=== PATIENT | male | born 1945 | race Caucasian/White ===

== ENCOUNTER → 2017-08-23 10:06 | Outpatient (POV) | payer MEDICARE, SELFPAY | PROVIDERS: Visit Provider Dermatology | DX: Z00.00 Encounter for general adult medical examination without abnormal findings (principal) ==

== ENCOUNTER → 2018-03-05 09:38 | Outpatient (POV) | payer MEDICARE, SELFPAY | PROVIDERS: PCP Family Medicine; Visit Provider Dermatology | DX: Z00.00 Encounter for general adult medical examination without abnormal findings (principal) ==

== ENCOUNTER → 2018-08-14 12:52 | Outpatient (CLI) | payer MEDICARE, SELFPAY | PROVIDERS: PCP Family Medicine; Visit Provider Specialist | DX: G20 Parkinson's disease (principal); G47.19 Other hypersomnia; G47.30 Sleep apnea, unspecified; I10 Essential (primary) hypertension; I25.10 Atherosclerotic heart disease of native coronary artery without angina pectoris; R42 Dizziness and giddiness; R53.83 Other fatigue | CPT/HCPCS: G0399 ==

== ENCOUNTER → 2018-10-07 19:52 | Outpatient (CLI) | payer MEDICARE, SELFPAY | PROVIDERS: PCP Family Medicine; Visit Provider Specialist | DX: G47.33 Obstructive sleep apnea (adult) (pediatric) (principal); R40.0 Somnolence; I10 Essential (primary) hypertension | CPT/HCPCS: 95810 ==

== ENCOUNTER → 2018-10-29 09:46 | Outpatient (POV) | payer MEDICARE, SELFPAY | PROVIDERS: Visit Provider Dermatology | DX: Z00.00 Encounter for general adult medical examination without abnormal findings (principal) ==

== ENCOUNTER → 2019-12-29 16:29 | Outpatient (CLI) | payer MEDICARE, SELFPAY ==
[2019-12-29 18:07] LABS: Alanine Aminotransferase 24 U/L (12-78); Albumin Level 4.3 g/dl (3.5-5.0); Albumin/Globulin Ratio 1.5 (1.1-1.8); Alkaline Phosphatase 140 U/L (38-126); Anion Gap 16.7 mEq/L (5-15); Aspartate Amino Transferase 24 U/L (17-59); Bilirubin,Total 0.4 mg/dl (0.2-1.3); Blood Urea Nitrogen 33 mg/dl (9-20); Calcium 10.8 mg/dl (8.4-10.2); Carbon Dioxide 30 mmol/L (22.0-30.0); Chloride 97 mmol/L (98-107); Chol/HDL Ratio 4.8 (1-3.5); Cholesterol 241 mg/dl (140-200); Estimated Glomerular Filt Rate 65 ml/min (>60); GFR (African American) 79 ML/MIN (>60); Globulin 2.9 g/dL (1.3-3.2); Glucose 211 mg/dl (74-100); HDL Cholesterol 50 mg/dl (40-60); Potassium 4.7 mmoL/L (3.5-5.1); Sodium 139 mmol/L (136-145); Total Protein,Serum 7.2 g/dl (6.3-8.2)
[2019-12-29 18:08] LABS: Triglycerides 488 mg/dl (30-150)
[2019-12-29 22:14] LABS: Hemoglobin A1C 11.9 % (4.0-6.0)
== END ==
PROVIDERS: Visit Provider Family Medicine
DX: E11.9 Type 2 diabetes mellitus without complications (principal); I10 Essential (primary) hypertension; E78.5 Hyperlipidemia, unspecified; Z79.84 Long term (current) use of oral hypoglycemic drugs
CPT/HCPCS: 80053; 80061; 83036

== ENCOUNTER → 2020-01-13 14:39 | Outpatient (POV) | payer MEDICARE, SELFPAY | PROVIDERS: Visit Provider Dermatology | DX: Z00.00 Encounter for general adult medical examination without abnormal findings (principal) ==

== ENCOUNTER 2020-01-17 09:48 | Emergency (ER) | payer MEDICARE, SELFPAY ==
[2020-01-17 09:49] VITALS: BP 153/64; PULSE 85; RESP 20; TEMP 36.4; O2SAT 97; BMI 39.9
--- NOTE | 2020-01-17 09:52 | HMH.EDGENADL ---
ED Disposition Clinical Impression: Left hip pain Left knee pain Qualifiers: Chronicity: acute Qualified Code(s): M25.562 - Pain in left knee Disposition: Home, Self-Care Condition on Discharge: Good Additional Instructions: Follow-up with your PCP in the next couple of days. If you have any new, changing, worsening, or concerning symptoms, come back to the emergency department. Referrals: Michael Garvey MD [Primary Care Provider] - Time of Disposition: 11:34 - Critical Care Critical Care Time: No Attestation: On , the high probability of a clinically significant, sudden or life threatening deterioration of the following system(s) required my full and direct attention, intervention and personal management. The time I documented below is in addition to time spent performing reported procedures but includes the following listed in this critical care notation. Medical Decision Making - Medical Records Medical records reviewed: Yes: I reviewed the patient's medical records. MR Cassy: 74-year-old male presents the emergency department with left hip and knee pain after a fall on the of this month. He arrives to the ED hemodynamically stable, with reassuring vital signs, and looks well on exam. He has been ambulating but with pain in the left hip and knee. He did not strike his head or lose consciousness during this fall on reassessment, patient remains well. And landed on the left hip. Given this, will obtain pelvis and hip x-rays as well as femur and knee on the left side and reassess. On reassessment, patient remains well. X-rays were personally reviewed and he appears to have a lot of chronic degenerative changes. Spoke with radiologist given this to get an x-ray read and they agree mostly osteoarthritic changes, no new acute fracture. He does not have significant swelling of the knee and is ambulating at his baseline, or any other indications that he needs a CT scan at this time to evaluate for occult injury of the hip or knee, however I told him this is always possible and if his pain changes, increases, or does not get better over the next couple of days, he should be reevaluated. He was given strict return precautions and discharge instructions and verbalized understanding and agreement to the plan. Safe to discharge. - Lj Inquiry Pt receiving controlled substance: No Vital Signs: 01/17/20 09:49 01/17/20 10:33 01/17/20 11:06 Temperature 97.5 F L Temperature Source Oral Pulse Rate [Left Radial] 85 80 77 Respiratory Rate 20 Blood Pressure [Right Arm] 153/64 H 155/65 H 147/64 H Blood Pressure Mean [Right Arm] 93 95 91 Blood Pressure Source [Right Arm] Automatic Cuff Automatic Cuff Automatic Cuff Blood Pressure Position [Right Arm] Sitting Sitting Sitting 02 Sat by Pulse Oximetry 97 94 L 96 Oxygen Delivery Method Room Air Room Air Room Air General Adult HPI - General Stated complaint: AO 01/13/20 Fell, injury to L hip and knee Time Seen by Provider: 01/17/20 09:52 - History of Present Illness HPI narrative: 74-year-old male presents the emergency department after a fall about 3 to 4 days ago at home, he has had left hip and knee pain since that time. He states that he believes he tripped over his own feet in the kitchen, and landed on his left hip, he has had pain since that time. He denies take anything at home for the pain. He has a history of Parkinson's and uses a cane or other assistive walking device at baseline, but states that laying flat and bearing weight has made the pain worse. He denies any numbness or tingling of his lower extremities. He denies any groin anesthesia. He denies any midline back pain states the pain is mostly in his hip and knee on the left side. He denies striking his head or LOC. No other injury or concern at this time. - Related Data Home Medications Medication Instructions Recorded Confirmed fluoxetine 10 mg capsule PO 90 Days 07/23/17
--- NOTE | 2020-01-17 09:58 | XR_ITS ---
PROCEDURE: XR HIP LT 2-3V W/PELVIS CLINICAL INDICATION: left hip and knee pain Posttraumatic pain COMPARISON: CR XR FEMUR LT 2V from 01/17/2020 FINDINGS: There are severe osteoarthritic changes of the left hip without obvious fracture or dislocation. Also noted are moderate osteoarthritic changes of the right hip on the AP view of the pelvis. Tricompartmental osteoarthritic changes are present at knee. No acute fracture evident of the femur. IMPRESSION: Osteoarthritis otherwise negative Dictated by: David Mcqueen MD 01/17/2020 11:04 David Mcqueen MD in [facility] 01/17/2020 11:04
--- NOTE | 2020-01-17 09:58 | XR_ITS ---
PROCEDURE: XR KNEE LT 3V CLINICAL INDICATION: left hip and knee pain Posttraumatic pain COMPARISON: No exams were available for comparison FINDINGS: No acute fracture or dislocation. Tricompartmental osteoarthritic changes most severe at the medial compartment and patellofemoral joint. Loose bodies suspected along the anterior aspect of the distal femur at the level of the knee measuring approximately 1 cm. There is prominent sclerosis along proximal tibia just distal to the tibial tuberosity. Chondrocalcinosis lateral compartment Other findings:None. IMPRESSION: Osteoarthritis, no acute fracture Dictated by: David Mcqueen MD 01/17/2020 11:05 David Mcqueen MD in [facility] 01/17/2020 11:05
--- NOTE | 2020-01-17 10:24 | PC.NURSE ---
Pt with rad
--- NOTE | 2020-01-17 10:29 | PC.NURSE ---
Pt returned from rad.
[2020-01-17 10:33] VITALS: BP 155/65; PULSE 80; O2SAT 94
[2020-01-17 11:06] VITALS: BP 147/64; PULSE 77; O2SAT 96
[2020-01-17 11:52] VITALS: BP 140/64; PULSE 79; RESP 17; TEMP 36.4; O2SAT 97
== END 2020-01-17 11:53 | disposition home or self-care (01) ==
PROVIDERS: Emergency Provider Emergency Medicine; PCP Family Medicine
DX: M25.552 Pain in left hip (principal); M25.562 Pain in left knee; W01.0XXA Fall on same level from slipping, tripping and stumbling without subsequent striking against object, initial encounter; Y92.010 Kitchen of single-family (private) house as the place of occurrence of the external cause; I10 Essential (primary) hypertension; E78.5 Hyperlipidemia, unspecified; I25.10 Atherosclerotic heart disease of native coronary artery without angina pectoris; E11.9 Type 2 diabetes mellitus without complications; K21.9 Gastro-esophageal reflux disease without esophagitis; G20 Parkinson's disease; Z87.891 Personal history of nicotine dependence; Z79.899 Other long term (current) drug therapy; Z79.4 Long term (current) use of insulin; Z79.84 Long term (current) use of oral hypoglycemic drugs
CPT/HCPCS: 73502; 73552; 73562; 99282

== ENCOUNTER → 2020-02-10 08:12 | Outpatient (POV) | payer MEDICARE, SELFPAY | PROVIDERS: Visit Provider Dermatology | DX: Z00.00 Encounter for general adult medical examination without abnormal findings (principal) ==

== ENCOUNTER 2020-02-17 10:14 | Observation (INO) | payer MEDICARE, SELFPAY ==
[2020-02-17] VITALS (21 sets, daily range): BP systolic 115–171; BP diastolic 61–87; PULSE 73–89; RESP 16–20; TEMP 36.7–36.9; O2SAT 94–100; BMI 39.9; BMI 39.7
--- NOTE | 2020-02-17 10:06 | ECG_ITS ---
APPROVED REPORT Exam: Resting ECG HR:81 bpm ECG Measurements Heart Rate 81 AXES NH 160 P 55 QRSd 100 QRS -41 QT 388 T 64 QTc 450 <Conclusion> Normal sinus rhythm Left axis deviation,LAHB Voltage criteria for left ventricular hypertrophy Abnormal ECG Electronically signed by : Carmelo Peralta, 02/17/2020 15:03:40
--- NOTE | 2020-02-17 10:17 | XR_ITS ---
PROCEDURE: XR CHEST PORTABLE CLINICAL HISTORY: chest pain COMPARISON: No exams were available for comparison FINDINGS: The cardiomediastinal silhouette and pulmonary vascularity are within normal limits. The lungs are clear without infiltrates, suspicious nodules, or pleural effusions. No acute bony abnormalities. IMPRESSION: No acute findings. Dictated by: David Mcqueen MD 02/17/2020 11:41 David Mcqueen MD in [facility] 02/17/2020 11:41
--- NOTE | 2020-02-17 10:19 | HMH.EDCP ---
ED Disposition Clinical Impression: Chest pain Qualifiers: Chest pain type: unspecified Qualified Code(s): R07.9 - Chest pain, unspecified Disposition: Admitted As Inpatient Condition on Discharge: Good - Critical Care Critical Care Time: No Attestation: On , the high probability of a clinically significant, sudden or life threatening deterioration of the following system(s) required my full and direct attention, intervention and personal management. The time I documented below is in addition to time spent performing reported procedures but includes the following listed in this critical care notation. Medical Decision Making - Medical Records Medical records reviewed: Yes: I reviewed the patient's medical records. - Lj Inquiry Pt receiving controlled substance: No Vital Signs: 02/17/20 10:14 02/17/20 10:41 Temperature 98.5 F Temperature Source Oral Pulse Rate [Left Radial] 81 74 Respiratory Rate 18 20 Blood Pressure [Right Arm] 135/70 145/63 H Blood Pressure Mean [Right Arm] 91 90 Blood Pressure Source [Right Arm] Automatic Cuff Automatic Cuff Blood Pressure Position [Right Arm] Sitting Sitting 02 Sat by Pulse Oximetry 96 95 Oxygen Delivery Method Room Air Room Air - Lab Data Lab Results 02/17/20 10:21: WBC 5.7, RBC 4.90, Hgb 13.0 L, Hct 40.4 L, MCV 82.5, MCH 26.4 L, MCHC 32.0, RDW 16.5, Plt Count 183, MPV 8.4, Neut % (Auto) 68.7, Lymph % (Auto) 21.1, [place] % (Auto) 8.3, Eos % (Auto) 1.4, Baso % (Auto) 0.5, Neut # (Auto) 3.9, Lymph # (Auto) 1.2, [place] # (Auto) 0.5, Eos # (Auto) 0.1, Baso # (Auto) 0.0 02/17/20 10:21: PT 10.9, INR 0.98, APTT 23.6 02/17/20 10:21: Sodium 137, Potassium 4.5, Chloride 97 L, Carbon Dioxide 30, Anion Gap 14.5, BUN 52 H, Creatinine 1.30 H, Estimated Creat Clear 86, Estimated GFR 54 L, Est GFR ( Amer) 65, Glucose 233 H, Calcium 10.1, Total Bilirubin 0.5, AST 31, ALT 37, Alkaline Phosphatase 99, Total Protein 7.3, Albumin 4.2, Globulin 3.1, Albumin/Globulin Ratio 1.4 02/17/20 10:21: Troponin I 0.02, Lipase 278 Result diagrams: 02/17/20 10:21 02/17/20 10:21 Orders (Tests/Meds): ED MEDICATIONS Generic Name Dose Route Start Last Admin Trade Name Freq PRN Reason Stop Dose Admin Diphenhydramine HCl 50 mg 02/17/20 11:32 Benadryl 50mg/1ml Vial IV 02/17/20 11:33 ONCE ONE Nitroglycerin 0.4 mg 02/17/20 10:17 Nitrostat 0.4mg Sl Tablet SL 02/18/20 10:17 Q5MINP PRN Chest Pain Discontinued Medications Generic Name Dose Route Start Last Admin Trade Name Freq PRN Reason Stop Dose Admin Aspirin 324 mg 02/17/20 10:17 02/17/20 10:29 Aspirin 81mg Chewable Tablet PO 02/17/20 10:18 324 mg ONCE ONE Administration ORDERS Category Date Time Status XR chest portable Stat Exams 02/17/20 10:17 Taken Troponin I Q3H Lab 02/17/20 13:30 Ordered Troponin I Q3H Lab 02/17/20 16:30 Ordered CA echo doppler complete Stat Y 02/17/20 11:33 Ordered ECG Request by /Richy Stat Y 02/17/20 10:17 Ordered - Radiology Data #1 Image(s): Chest Image Reviewed: Yes I reviewed the patient's radiology image No acute findings - ECG Data Tracing #1 EKG at 1006 shows normal sinus rhythm with a rate of 81. No acute ST segment elevation or depression. No hyperacute T waves. Normal intervals. LVH present. EKG interpreted by me. Medical Decision Narrative: Patient with musculoskeletal type pain along the left trapezius, but known history of coronary artery disease. EKG with no signs of acute infarction, troponin negative, consulted with cardiology who will take him to [facility] today. Chest x-ray with no signs of gamaliel pneumonia, pneumothorax or florid pulmonary edema. Chest Pain HPI - General Stated Complaint: chest pain Time Seen by Provider: 02/17/20 10:19 Mode of Arrival: Ambulatory Source of Information: Patient, Spouse, Medical Record Limitations: No Limitations - History of Present Illness HPI narrative:
[2020-02-17 10:34] LABS: Chloride 97 mmol/L (98-107)
[2020-02-17 10:35] LABS: Basophils % 0.5 % (0.1-2.0); Eosinophils # 0.1 K/mm3 (0.0-0.4); Eosinophils % 1.4 % (0.1-12.0); Hematocrit 40.4 % (42.0-52.0); Lymphocytes # 1.2 K/mm3 (0.7-4.5); Lymphocytes % 21.1 % (10-50); Mean Corpuscular Hemoglobin 26.4 pg (27.0-31.2); Mean Corpuscular Volume 82.5 fl (80-94); Mean Platelet Volume 8.4 fl (7.4-10.4); Monocytes # 0.5 K/mm3 (0.1-1.0); Monocytes % 8.3 % (1.7-9.3); Neutrophils # 3.9 K/mm3 (1.8-7.8); Neutrophils % 68.7 % (37.0-80.0); Platelet Count 183 K/mm3 (142-424); Potassium 4.5 mmoL/L (3.5-5.1); Red Cell Distribution Width 16.5 % (11.5-17.5); Sodium 137 mmol/L (136-145); White Blood Count 5.7 K/mm3 (4.8-10.8)
[2020-02-17 10:37] LABS: Alanine Aminotransferase 37 U/L (12-78); Alkaline Phosphatase 99 U/L (38-126); Anion Gap 14.5 mEq/L (5-15); Aspartate Amino Transferase 31 U/L (17-59); Bilirubin,Total 0.5 mg/dl (0.2-1.3); Blood Urea Nitrogen 52 mg/dl (9-20); Carbon Dioxide 30 mmol/L (22.0-30.0); Creatinine Clearance Estimated 86 mL/min (50-200); Estimated Glomerular Filt Rate 54 ml/min (>60); GFR (African American) 65 ML/MIN (>60)
[2020-02-17 10:38] LABS: Albumin Level 4.2 g/dl (3.5-5.0); Albumin/Globulin Ratio 1.4 (1.1-1.8); Calcium 10.1 mg/dl (8.4-10.2); Globulin 3.1 g/dL (1.3-3.2); Glucose 233 mg/dl (74-100); Lipase 278 U/L (23-300); Total Protein,Serum 7.3 g/dl (6.3-8.2)
[2020-02-17 10:47] LABS: Activated Partial Thrombo Time 23.6 seconds (23.6-34.0); INR 0.98 (0.9-1.1); Prothrombin Time 10.9 seconds (9.4-11.8)
[2020-02-17 10:50] LABS: Troponin I 0.02 ng/ml (0.00-0.034)
--- NOTE | 2020-02-17 11:25 | PC.NURSE ---
Ernestina from cardiology in with pt. pt to go to [facility] today.
--- NOTE | 2020-02-17 11:32 | PC.NURSE ---
care management called for bed per cardiac cath tech request
--- NOTE | 2020-02-17 11:33 | CA_ITS ---
APPROVED REPORT EXAM: Comprehensive 2D, Doppler, and color-flow Echocardiogram [facility] Consultant: Dahiana Otero RDCS Ht: 5 ft 9 in Wt: 270lbs BSA: 2.35 BP: 09573/72 mmHg Indications: SOA,CAD,DM,HTN,HLP,MORBID OBESITY 2D Dimensions LVOT 2.05 cm (M/F) 1.5-2.5 M-Mode Dimensions RVDd 3.15 cm (0.9-2.6) LVDd 5.27 cm (3.5-5.7) LVDs 3.98 cm (3.5-5.7) IVSd 1.37 cm (0.6-1.1) PWd 0.95 cm (0.6-1.1) EF (Teich) 48.20% FS 24.50% EDV (Teich) 133.60 mL ESV (Teich) 69.20 mL LV Diastology E/A Ratio 0.61 Mitral Valve MV A Velocity 110.00 (40-130 cm/s) Left Ventricle Left atrium is moderately enlarged, left ventricle is normal size, mild concentric left ventricular hypertrophy, visually estimated ejection fraction 55% with no regional wall motion abnormality, endocardial surfaces are poorly visualized, Doppler evidence of impaired LV relaxation seen, there is no tissue Doppler performed. Right Ventricle Right atrium is moderately enlarged, right ventricle is mildly dilated with normal contractility. Aortic Valve Aortic valve is thickened and calcified leaflet chordae display good mobility, there is no aortic stenosis, there is mild aortic insufficiency. Mitral Valve Mitral valve has mitral annular calcification, leaflets are minimally thickened, there is no mitral stenosis, there is mild mitral regurgitation. Tricuspid Valve Tricuspid valve is grossly normal, there is mild tricuspid regurgitation, tricuspid regurgitation jet velocity is inadequate for calculation of the right ventricular systolic pressure. Pulmonic Valve Pulmonic valve is poorly visualized. Great Vessels Aortic root is normal size. Pericardium No significant pericardial effusion noted. Conclusion 1. Technically difficult study because of the patient factors and poor acoustic windows. 2. Moderate biatrial enlargement, normal left ventricular size, mild concentric left ventricular hypertrophy, visually estimated ejection fraction 55% with no regional wall motion abnormality, Doppler evidence of impaired LV relaxation seen. There is no tissue Doppler performed 3. Thickened and calcified aortic valve without aortic stenosis, there is mild aortic insufficiency. 4. Mild mitral and tricuspid regurgitation. 5. Mildly enlarged right ventricle with normal contractility. 6. No significant pericardial effusion noted. Electronically signed by : Manish Thakkar, 02/17/2020 17:01:30
--- NOTE | 2020-02-17 11:34 | IR_ITS ---
APPROVED REPORT Patient Location: [facility]gent [facility] Operator: JAZMÍN Jordan RT (R) PROCEDURES Right heart catheterization Left heart catheterization Left ventriculogram Selective coronary angiogram INDICATION Abnormal stress test, Known coronary artery disease, Acute coronary syndrome, Pulmonary hypertension/dyspnea Informed consent was obtained prior to the procedure. COMPLICATIONS none Estimated Blood Loss: less than 10 mls TECHNIQUE One percent lidocaine was used to anesthetize the right anterior aspect of the right wrist. The right radial artery was accessed via the Seldinger technique and a 6 Amharic hydrophilic sheath was placed in the right radial artery. Following this one percent lidocaine was used to anesthetize the right anterior aspect of the right neck. The right internal jugular vein was accessed via the Seldinger technique and a 7 Amharic sheath was placed in the right internal jugular vein. Following this an arterial cocktail was administered using 5000U heparin, 2.5 mg verapamil, 1mg Lidocaine and 800mcg nitroglycerin into the right radial sheath. A trap catheter was used to perform left heart catheterization left ventriculogram and selective coronary angiography while a [place] catheter was used to perform right heart catheterization. Saturations were obtained in the pulmonary artery and right atrium. At the end of the procedure the arterial sheath was removed good hemostasis was achieved using Traclet band. Patient was transferred to the postop holding area in stable condition for venous sheath removal. ANGIOGRAPHIC RESULTS The left main artery Normal The left anterior descending artery Is proximally normal and then has a concentric 20 to 30% stenosis immediately adjacent to a large first diagonal artery. The remaining LAD has mild luminal irregularities. The large first diagonal artery has a proximal concentric 20% stenosis The circumflex artery Is nondominant yet still large with a proximal concentric 30% stenosis followed by mid vessel stent which is widely patent The right coronary artery Is a dominant vessel has mild diffuse 10% luminal irregularities The [place] ventriculogram reveals Preserved at 60% The left ventricular end-diastolic pressure 15 mmHg Right atrial saturation 8 mmHg Pulmonary artery pressure 35/17 mmHg Pulmonary occlusion pressure 15 mmHg Right atrial saturation 79% Pulmonary artery saturation 74% IMPRESSION Widely patent mid circumflex artery stent Mild to moderate [id number] coronary disease as described above Preserved ejection fraction Mildly elevated left-sided filling pressures accompanied by mild pulmonary hypertension PLAN 1. Medical management 2. Risk factor modification Electronically signed by : Sd Marvin, 02/17/2020 12:59:22
--- NOTE | 2020-02-17 11:38 | HMH.CNCARD ---
History of Present Illness Consult date: 02/17/20 Requesting physician: Jd Collado Consult reason: chest pain Chief complaint: chest pain History of present illness: This is a 74-year-old white gentleman who presented to the emergency department with complaints of chest pain and left arm and shoulder pain. The patient does have a history of coronary artery disease, hypertension and hyperlipidemia as well as diabetes and chronic kidney disease. The patient states that he started having pain in his chest yesterday that radiated up into his neck his left shoulder and down his left arm. He states that it is a heavy sensation and rates this a 9 out of 10 in intensity. He associates this with shortness of breath. He denies any nausea or diaphoresis. The patient states that this has been ongoing off and on since yesterday. He states that it has persisted all day yesterday and throughout the day today. He decided to come to the emergency department because this was not getting any better. Nothing is resolving the chest pain and arm pain. He states that it does get worse with exertion. He denies any fever, chills, nausea, vomiting, diarrhea. He states that he is still having lower extremity edema and he is still wrapping his bilateral lower extremities. The patient is status post coronary artery stenting in 2018. He was seen in the cardiology clinic within the last week and set up for left and right cardiac catheterization on of this week. However his symptoms have worsened. He states that his shortness of breath is still ongoing as well. [facility] History I have reviewed the patient's past medical history: Yes Medical History: Reports:: Asthma, Cancer, Coronary Artery Disease, Depression, Diabetes Mellitus Type 2, Gastroesophageal Reflux Disease(GERD), Hepatitis, Hyperlipidemia, Hypertension, Renal Insufficiency Denies:: Diabetes Mellitus Type 1 *Have you ever received a pneumonia vaccine?: No *Have you received a flu vaccine this season?: No Other Medical History: Reports: Arthritis, Sinus Problems, Other (gout,parkinsons,neuropathy) Laterality Cases: Bilateral: Tonsillectomy Other Surgeries: Yes: Cancer Surgery, Cardiac Catheterization, Colonoscopy, Coronary Stent, Other Amputation: No Fractures: No - *Social History Smoking Status: Former smoker Tobacco Type: cigarettes Alcohol Intake: never Alcohol Intake Frequency:: other Substance Use Type: denies use *Occupational Status:: retired Housing: house Household Members: spouse *Travel in the last 8 weeks: None - Psychiatric History Pschychiatric History:: Reports:: Depression Family Hx:: Diabetes Meds Home Medications Medication Instructions Recorded Confirmed Type aspirin 81 mg tablet,delayed 81 mg PO ONCE 09/20/17 02/17/20 History release omega-3 fatty acids 1,000 mg 1,000 mg PO BID cap 09/20/17 02/17/20 History capsule atorvastatin 40 mg tablet 40 mg PO DAILY #90 tab 10/04/17 02/17/20 Rx allopurinol 100 mg tablet 100 mg PO BID 90 Days tab 06/18/18 02/17/20 History lisinopril 20 20 mg PO DAILY 90 Days tab 06/18/18 02/17/20 History mg-hydrochlorothiazide 25 mg tablet metformin 1,000 mg tablet 1,000 mg PO BID 90 Days tab 06/18/18 02/17/20 History omeprazole 20 mg capsule,delayed 20 mg PO DAILY 90 Days cap 06/18/18 02/17/20 History release insulin aspart U-100 100 unit/mL 28 unit SQ TID ml 09/16/19 02/17/20 History (3 mL) subcutaneous pen insulin detemir U-100 100 unit/mL 80 unit SQ QHS ml 09/16/19 02/17/20 History (3 mL) subcutaneous pen trazodone 50 mg tablet 50 mg PO DAILY #90 tab 09/16/19 02/17/20 Rx furosemide 80 mg tablet 120 mg PO DAILY tab 12/29/19 02/17/20 History pramipexole 0.5 mg tablet 1.5 mg PO TID tab 12/29/19 02/17/20 History hydrocodone 7.5 mg-acetaminophen 1 tab PO BID PRN #60 tab 01/01/20 02/17/20 Rx 325 mg tablet fluoxetine 10 mg capsule 10 mg PO DAILY 90 Days #90 cap 02/10/20 02/17/20 History potassium chloride 10 mEq 10
--- NOTE | 2020-02-17 11:54 | PC.NURSE ---
quality control lab tech at bedside to take patient to lab at this time.
--- NOTE | 2020-02-17 12:04 | PC.NURSE ---
echo remains at bedside. cath lab tech to return.
[2020-02-17 13:31] LABS: CATHL Arterial O2 SAT 82.1 % (90-100); CATHL Venous O2 SAT 79 % (75-80)
[2020-02-17 14:29] LABS: Coronavirus 19 IgG Antibody Positive (Negative); Coronavirus 19 IgM Antibody Negative (Negative)
--- NOTE | 2020-02-17 14:39 | PC.NURSE ---
late entry: pt arrived to the floor at 1430
--- NOTE | 2020-02-17 15:06 | HMH.PHAVTE ---
[facility] Pharmacy VTE Monitoring - Patient Demographics Admission date: 02/17/20 Report Date: 02/17/20 Time: 15:06 Allergies/Adverse Reactions: Patient Allergies hydrocortisone Allergy (Verified 02/17/20 14:39) Unknown allergy reaction nabumetone [From Relafen] Allergy (Verified 02/10/20 09:00) Unknown allergy reaction prednisolone Allergy (Verified 02/17/20 14:39) Unknown allergy reaction prednisone Allergy (Verified 02/17/20 14:39) Unknown allergy reaction Height: 1.75 m Weight: 122.13 kg Patient Problems: Current Active Problems Unstable angina (Acute) Shortness of breath (Acute) Bilateral lower extremity edema (Acute) Diabetes mellitus (Chronic) Heart murmur (Acute) Chest pain (Acute) - VTE Risk Labs: VTE Related Lab Results Hgb 13.0 g/dL (14.1-18.0) L 02/17/20 10:21 Hct 40.4 % (42.0-52.0) L 02/17/20 10:21 Plt Count 183 K/mm3 (142-424) 02/17/20 10:21 PT 10.9 seconds (9.4-11.8) 02/17/20 10:21 INR 0.98 (0.9-1.1) 02/17/20 10:21 APTT 23.6 seconds (23.6-34.0) 02/17/20 10:21 BUN 52 mg/dl (9-20) H 02/17/20 10:21 Creatinine 1.30 mg/dl (0.66-1.25) H 02/17/20 10:21 Estimated Creat Clear 86 mL/min (50-200) 02/17/20 10:21 Was VTE Risk Assessment Performed: Yes VTE Score: 7 VTE Risk Level: Moderate Risk Clinical Trial Participant: No - Prophylaxis VTE Prophylaxis Ordered?: Yes Types of VTE Prophylaxis: TEDS Knee High
--- NOTE | 2020-02-17 15:20 | HMH.PHAINT ---
home medication reconciliation completed using list from home pharmacy
[2020-02-17 16:22] LABS: POC Glucose,Bedside 211 (70-110)
--- NOTE | 2020-02-17 18:38 | PC.NURSE ---
Pt is alert and oriented and able to make needs known. RR even and unlabored. NAD. CB in reach. Has done well since heart cath. Heart mumur noted. Lungs cta. Dsg to R neck - dime sz unchanged blood on dsg. Dsg to R wrist cdi- telfa and tegaderm. Did have very tiny amt of sangious blood when removing traclet. No active bleeding. Mx continues. Remains safe. LYDIA legs wrapped.VSS.
--- NOTE | 2020-02-17 21:01 | HMH.HP ---
*Admission Date: 02/17/20 *Chief complaint: chest pain *History of present illness: this wm presented to the ed -s is a 74-year-old male with a past medical history significant for hypertension, hyperlipidemia, coronary artery disease, diabetes, renal insufficiency who presents to the emergency department for pain on the left side of the neck that feels heavy in nature and radiates down his arm. It is worse with pressure over the musculature of the neck. No recent muscle strain or increases in exertion. No new shortness of breath. No diaphoresis or vomiting. He has not had any fevers or cough. Last stents were in 2018. 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 History I have reviewed the patient's past medical history: Yes Medical History: Reports:: Asthma, Cancer (malignant melanoma 2017, R hand and L shoulder), Coronary Artery Disease, Depression, Gastroesophageal Reflux Disease(GERD), Heart Murmur, Hepatitis, Hyperlipidemia, Hypertension, MRSA, Renal Insufficiency Denies:: Diabetes Mellitus Type 1, Diabetes Mellitus Type 2 *Have you ever received a pneumonia vaccine?: No *Have you received a flu vaccine this season?: No Other Medical History: Reports: Arthritis, Sinus Problems, Other (gout,parkinsons,neuropathy) Laterality Cases: Bilateral: Tonsillectomy Other Surgeries: Yes: Cancer Surgery, Cardiac Catheterization, Colonoscopy, Coronary Stent, Other Amputation: No Fractures: No - *Social History Last grade of school completed: Some college Smoking Status: Former smoker Tobacco Type: cigarettes Alcohol Intake: never Alcohol Intake Frequency:: other Substance Use Type: denies use *Occupational Status:: retired Housing: house Household Members: spouse *Travel in the last 8 weeks: None - Psychiatric History Pschychiatric History:: Reports:: Depression Family Hx:: Diabetes Review of Systems - Review of Systems Review of systems:: pertinent systems reviewed and negative unless documented below - Constitutional Denies fever(s) - Eyes Denies change in vision - ENT Denies sore throat - *Cardiovascular Reports chest pain, Reports radiating jaw, neck or arm pain - *Respiratory Denies cough - *Gastrointestinal Denies abdominal pain - *Genitourinary Denies blood in urine - *Musculoskeletal Reports joint pain - Integumentary/Breasts Denies rash - *Neurologic Denies seizure-like activity, Denies headache(s), Denies loss of vision - Psychiatric Denies anxiety Meds Home Medications Medication Instructions Recorded Confirmed Type aspirin 81 mg tablet,delayed 81 mg PO DAILY 09/20/17 02/17/20 History release omega-3 fatty acids 1,000 mg 1,000 mg PO BID cap 09/20/17 02/17/20 History capsule atorvastatin 40 mg tablet 40 mg PO DAILY #90 tab 10/04/17 02/17/20 Rx allopurinol 100 mg tablet 100 mg PO BID 90 Days tab 06/18/18 02/17/20 History lisinopril 20 1 tab PO DAILY 90 Days tab 06/18/18 02/17/20 History mg-hydrochlorothiazide 25 mg tablet metformin 1,000 mg tablet 1,000 mg PO BID 90 Days tab 06/18/18 02/17/20 History omeprazole 20 mg capsule,delayed 20 mg PO DAILY 90 Days cap 06/18/18 02/17/20 History release insulin aspart U-100 100 unit/mL 28 unit SQ TID ml 09/16/19 02/17/20 History (3 mL) subcutaneous pen insulin detemir U-100 100 unit/mL 80 unit SQ HS ml 09/16/19 02/17/20 History (3 mL) subcutaneous pen trazodone 50 mg tablet 50 mg PO DAILY #90 tab 09/16/19 02/17/20 Rx furosemide 80 mg tablet 120 mg PO DAILY tab 12/29/19 02/17/20 History pramipexole 0.5 mg tablet 1.5 mg PO TID tab 12/29/19 02/17/20 History hydrocodone 7.5 mg-acetaminophen 1 tab PO BID PRN #60 tab 01/01/20 02/17/20 Rx 325 mg tablet fluoxetine 10 mg capsule 10 mg PO DAILY 90 Days #90 cap 02/10/20 02/17/20 History potassium chloride 10 mEq 10 meq PO DAILY tab 02/10/20 02/17/20 History tablet,extended release(part/cryst) Carbidopa/Levodopa [Carbidopa-Levo 2 tab PO TID 02/17/20
[2020-02-18] VITALS: BP 132/58; PULSE 80; PULSE 81; RESP 17; TEMP 36.8; O2SAT 94
[2020-02-18 00:53] LABS: POC Glucose,Bedside 272 (70-110)
--- NOTE | 2020-02-18 03:19 | PC.NURSE ---
Pt has rested well this shift in recliner. Rt wrist cath site dressing remains CDI with no hematoma noted. Rt side of neck cath site dressing has a dime-sized red drainage noted on dressing from prior shift, with no new drainage noted this shift and no hematoma noted. Pt received 6 units of Humalog coverage this shift per JUL. Pt's appetite has been satisfactory this shift. Pt has had no c/o chest pain or SOA this shift besides when lying flat when staff moved pt up in bed. Pt remains in recliner in room, where he is most comfortable. Lung sounds remain clear this shift. 20g PIC in RAC remains patent and SL. Call light is within reach. No other acute changes or complaints at this time. Will continue to monitor for any changes.
[2020-02-18 04:00] VITALS: BP 148/69; PULSE 80; PULSE 83; RESP 21; TEMP 36.9; O2SAT 96
[2020-02-18 05:01] VITALS: BMI 39.1
[2020-02-18 06:23] LABS: POC Glucose,Bedside 372 (70-110)
[2020-02-18 06:46] LABS: Basophils % 0.6 % (0.1-2.0); Eosinophils # 0.1 K/mm3 (0.0-0.4); Eosinophils % 1.6 % (0.1-12.0); Hematocrit 39.3 % (42.0-52.0); Hemoglobin 11.9 g/dL (14.1-18.0); Lymphocytes % 15.9 % (10-50); Mean Corpuscular HGB Conc 30.4 g/dL (31.8-35.4); Mean Corpuscular Hemoglobin 25.9 pg (27.0-31.2); Mean Corpuscular Volume 85.3 fl (80-94); Mean Platelet Volume 8.3 fl (7.4-10.4); Monocytes # 0.5 K/mm3 (0.1-1.0); Monocytes % 7.9 % (1.7-9.3); Neutrophils # 4.4 K/mm3 (1.8-7.8); Neutrophils % 73.9 % (37.0-80.0); Platelet Count 175 K/mm3 (142-424); Red Blood Count 4.61 M/mm3 (4.60-6.20); White Blood Count 5.9 K/mm3 (4.8-10.8)
[2020-02-18 06:54] LABS: Chloride 100 mmol/L (98-107)
[2020-02-18 06:55] LABS: Potassium 4.5 mmoL/L (3.5-5.1); Sodium 135 mmol/L (136-145)
[2020-02-18 06:57] LABS: Blood Urea Nitrogen 38 mg/dl (9-20); Creatinine Clearance Estimated 91 mL/min (50-200); Estimated Glomerular Filt Rate 59 ml/min (>60); GFR (African American) 72 ML/MIN (>60)
[2020-02-18 06:58] LABS: Anion Gap 12.5 mEq/L (5-15); Calcium 9.3 mg/dl (8.4-10.2); Carbon Dioxide 27 mmol/L (22.0-30.0); Cholesterol 191 mg/dl (140-200); Glucose 350 mg/dl (74-100); HDL Cholesterol 32 mg/dl (40-60)
[2020-02-18 07:04] LABS: Triglycerides 493 mg/dl (30-150)
[2020-02-18 07:09] LABS: Direct LDL Cholesterol 73.93 mg/dL (100-129)
[2020-02-18 08:00] VITALS: BP 143/77; PULSE 80; PULSE 88; RESP 18; TEMP 36.9; O2SAT 97
--- NOTE | 2020-02-18 09:54 | PC.NURSE ---
Ernestina Jaramillo, with cardiology here at this time and states from a cardio standpoint, pt can go home. D/C per Sohail is plan for today. Pt up to chair at this time. RR even and unlabored. CB in reach. Dsg to R wrist cdi, pulse BUE pulses plus 2. Dsg to R neck has no changes in amt of drainage and has no problems noted. MX continues, pt remains safe.
--- NOTE | 2020-02-18 09:55 | HMH.PNCARD ---
Subjective Date: 02/18/20 Time: 09:56 Principal diagnosis: angina, cad Interval history: This is a 74-year-old gentleman who was admitted to the hospital with chest pain and left arm/shoulder pain. The patient was taken to the cardiac catheterization laboratory and found to have widely patent circumflex stent and mild to moderate [id number] coronary artery disease. The patient did have mildly elevated left sided filling pressures with mild pulmonary hypertension on right cardiac catheterization. This morning he denies any chest pain or pressure. He states that he is short of breath but no worse than normal. He states that he still has edema but this is no worse than normal either. He denies any fever, chills, nausea, vomiting, diarrhea, PND or orthopnea. Exam Vital signs and Labs for Last 24 Hours: Temp Pulse Resp BP Pulse Ox 98.4 F 88 18 143/77 H 97 02/18/20 08:00 02/18/20 08:00 02/18/20 08:00 02/18/20 08:00 02/18/20 08:00 Laboratory Results - last 24 hr 02/17/20 10:21: WBC 5.7, RBC 4.90, Hgb 13.0 L, Hct 40.4 L, MCV 82.5, MCH 26.4 L, MCHC 32.0, RDW 16.5, Plt Count 183, MPV 8.4, Neut % (Auto) 68.7, Lymph % (Auto) 21.1, Brule % (Auto) 8.3, Eos % (Auto) 1.4, Baso % (Auto) 0.5, Neut # (Auto) 3.9, Lymph # (Auto) 1.2, Brule # (Auto) 0.5, Eos # (Auto) 0.1, Baso # (Auto) 0.0 02/17/20 10:21: PT 10.9, INR 0.98, APTT 23.6 02/17/20 10:21: Sodium 137, Potassium 4.5, Chloride 97 L, Carbon Dioxide 30, Anion Gap 14.5, BUN 52 H, Creatinine 1.30 H, Estimated Creat Clear 86, Estimated GFR 54 L, Est GFR ( Amer) 65, Glucose 233 H, Calcium 10.1, Total Bilirubin 0.5, AST 31, ALT 37, Alkaline Phosphatase 99, Total Protein 7.3, Albumin 4.2, Globulin 3.1, Albumin/Globulin Ratio 1.4 02/17/20 10:21: Troponin I 0.02, Lipase 278 02/17/20 10:21: SARS-CoV-2 IgG Ab (Rapid) Positive A, SARS-CoV-2 IgM Ab (Rapid) Negative 02/17/20 13:00: ABG O2 Sat (Measured) 82.1 L, POC VBG O2 Sat (Donna) 79 02/17/20 16:14: POC Glucose 211 H 02/17/20 20:23: POC Glucose 272 H 02/18/20 05:37: WBC 5.9, RBC 4.61, Hgb 11.9 L, Hct 39.3 L, MCV 85.3, MCH 25.9 L, MCHC 30.4 L, RDW 17.0, Plt Count 175, MPV 8.3, Neut % (Auto) 73.9, Lymph % (Auto) 15.9, Brule % (Auto) 7.9, Eos % (Auto) 1.6, Baso % (Auto) 0.6, Neut # (Auto) 4.4, Lymph # (Auto) 1.0, Brule # (Auto) 0.5, Eos # (Auto) 0.1, Baso # (Auto) 0.0 02/18/20 05:37: Sodium 135 L, Potassium 4.5, Chloride 100, Carbon Dioxide 27, Anion Gap 12.5, BUN 38 H D, Creatinine 1.20, Estimated Creat Clear 91, Estimated GFR 59, Est GFR ( Amer) 72, Glucose 350 H D, Calcium 9.3, Triglycerides 493 H, Cholesterol 191, LDL Cholesterol Direct 73.93 L, HDL Cholesterol 32 L, Cholesterol/HDL Ratio 6.0 H 02/18/20 05:50: POC Glucose 372 H* I & O for Last 24 hours: Intake & Output 02/15/20 02/16/20 02/17/20 02/18/20 23:59 23:59 23:59 23:59 Intake Total 360 / 360 860 / 860 Output Total 500 / 700 600 / 600 Balance -140 / -340 260 / 260 Weight 269 lb 4 oz 264 lb 0.007 oz Narrative: Telemetry strip is sinus rhythm with a rate of 88. Echocardiogram shows: 1. Technically difficult study because of the patient factors and poor acoustic windows. 2. Moderate biatrial enlargement, normal left ventricular size, mild concentric left ventricular hypertrophy, visually estimated ejection fraction 55% with no regional wall motion abnormality, Doppler evidence of impaired LV relaxation seen. There is no tissue Doppler performed 3. Thickened and calcified aortic valve without aortic stenosis, there is mild aortic insufficiency. 4. Mild mitral and tricuspid regurgitation. 5. Mildly enlarged right ventricle with normal contractility. 6. No significant pericardial effusion noted. - Constitutional no acute distress, obese - *Routine HEENT Exam Head: Present: normocephalic, atraumatic Eye: Present: EOMI, PERRL ENT: Present: mucous membranes moist - *Routine Neck Exam Present: supple, full ROM, normal carotid upstroke. Absent:
--- NOTE | 2020-02-18 10:12 | HMH.DCSUM ---
General - General Admission date:: 02/17/20 Discharge date: 02/18/20 HPI HPI: this wm presented to the ed -s is a 74-year-old male with a past medical history significant for hypertension, hyperlipidemia, coronary artery disease, diabetes, renal insufficiency who presents to the emergency department for pain on the left side of the neck that feels heavy in nature and radiates down his arm. It is worse with pressure over the musculature of the neck. No recent muscle strain or increases in exertion. No new shortness of breath. No diaphoresis or vomiting. He has not had any fevers or cough. Last stents were in 2018. 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 Discussed results of cardiac cath from yesterday. Bilateral lower extremity edema with wraps applied. Discussed discharged home he is in agreement with this. 74-year-old male patient with known history of CAD, HTN, DM, CKD, and HLD admitted to the hospital after complaints of left chest pain rated 9 out of 10 radiating into left shoulder and left arm. He also admits shortness of breath denied N/V or sweating. He reports this pain is been off/on x1 day. He reports being scheduled for cardiac cath in the near future and agreed to cath presently. He also has edematous bilateral lower extremities with wraps applied He reports this is has been an ongoing issue and this is not new. 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 Lab work H&H 11.9/39.3, BUN/creatinine 38/1.2, GFR 59, LDL 74 SARS-COV-2 IgG positive, SARS-COV-2 IgM negative Card Cath 02/17/20: ANGIOGRAPHIC RESULTS The left main artery Normal The left anterior descending artery Is proximally normal and then has a concentric 20 to 30% stenosis immediately adjacent to a large first diagonal artery. The remaining LAD has mild luminal irregularities. The large first diagonal artery has a proximal concentric 20% stenosis The circumflex artery Is nondominant yet still large with a proximal concentric 30% stenosis followed by mid vessel stent which is widely patent The right coronary artery Is a dominant vessel has mild diffuse 10% luminal irregularities The MARSHALL ventriculogram reveals Preserved at 60% The left ventricular end-diastolic pressure 15 mmHg Right atrial saturation 8 mmHg Pulmonary artery pressure 35/17 mmHg Pulmonary occlusion pressure 15 mmHg Right atrial saturation 79% Pulmonary artery saturation 74% IMPRESSION Widely patent mid circumflex artery stent Mild to moderate [id number] coronary disease as described above Preserved ejection fraction Mildly elevated left-sided filling pressures accompanied by mild pulmonary hypertension PLAN 1. Medical management 2. Risk factor modification Electronically signed by : Sd Marvin Cardiology has seern and rec: 1. The patient was admitted to the hospital with chest pain that was felt to be unstable angina. The patient underwent left cardiac catheterization which showed patent stents and mild to moderate nonocclusive coronary artery disease. The patient will remain on aspirin and Plavix for dual antiplatelet therapy. 2. His right cardiac catheterization showed mild pulmonary hypertension. Continue oral Lasix at this time. 3. His coronary artery disease is stable. 4. His blood pressure is acceptable. 5. His LDL goal is less than 55. His LDL is currently 73. He is on a statin. 6. The patient is diabetic. He will need aggressive control of his diabetes. Will defer management of this to his primary care provider. 7. The patient does have obstructive sleep apnea. 8. Weight loss is highly encouraged and counseled. 9. The patient still has bilateral lower extremity edema. As mentioned above he does have
--- NOTE | 2020-02-18 11:01 | PC.NURSE ---
Spoke with Syed Olea APRN in RE to blood sugar of 460 and he stated to give 12 units ssi.
[2020-02-18 11:27] LABS: POC Glucose,Bedside 460 (70-110)
--- OUTSIDE RECORDS SUMMARY | 2020-02-20 09:09 | XMS_ITS | Continuity of Care Document ---
:1945 Author Organization [facility] Address [address] [facility] [address] [place] [address] Phone Care Team Providers Name Role Phone Pamela Attending Provider Mare Primary Care Provider Maer Attending Provider Seth Attending Provider Pippa Attending Provider PCP Primary Care Provider Unavailable Vin Sauceda Attending Provider Allergies, Adverse Reactions, Alerts Allergen Type Severity Reaction Last Updated Verified Status hydrocortisone Allergy Unknown January Yes Activ e allergy 2019 reaction 2:39pm nabumetone Allergy Unknown January Yes Active allergy 2019 reaction 9:00am prednisolone Allergy Unknown January Yes Active allergy
== END 2020-02-18 11:30 | disposition home or self-care (01) ==
LOC: ER 11:41 → CATHLAB 13:46 → 2ND 13:46
PROVIDERS: Internal Medicine; Nurse Practitioner Family; Admitting Provider Emergency Medicine; Emergency Provider Emergency Medicine; Visit Provider Emergency Medicine
DX: I50.82 Biventricular heart failure (principal); R06.00 Dyspnea, unspecified; I25.110 Atherosclerotic heart disease of native coronary artery with unstable angina pectoris; I13.0 Hypertensive heart and chronic kidney disease with heart failure and stage 1 through stage 4 chronic kidney disease, or unspecified chronic kidney disease; I50.9 Heart failure, unspecified; Z95.5 Presence of coronary angioplasty implant and graft; N17.9 Acute kidney failure, unspecified; N18.9 Chronic kidney disease, unspecified; I27.20 Pulmonary hypertension, unspecified; Z86.19 Personal history of other infectious and parasitic diseases; Z79.4 Long term (current) use of insulin; Z79.82 Long term (current) use of aspirin; Z79.02 Long term (current) use of antithrombotics/antiplatelets; Z88.8 Allergy status to other drugs, medicaments and biological substances; E11.22 Type 2 diabetes mellitus with diabetic chronic kidney disease
CPT/HCPCS: 36415; 71045; 80048; 80053; 80061; 82810; 82962; 83690; 84484; 85025; 85610; 85730; 86328; 93005; 93306; 93460; 99152; 99153; 99284; C1725; C1769; C1894; G0378; J1644; Q9967

== ENCOUNTER → 2020-03-23 15:08 | Outpatient (CLI) | payer MEDICARE, SELFPAY ==
[2020-03-23 17:54] LABS: Basophils # 0.2 K/mm3 (0-0.2); Basophils % 2.4 % (0.1-2.0); Eosinophils # 0.2 K/mm3 (0.0-0.4); Eosinophils % 1.9 % (0.1-12.0); Hematocrit 41.6 % (42.0-52.0); Hemoglobin 13.4 g/dL (14.1-18.0); Lymphocytes # 2.1 K/mm3 (0.7-4.5); Lymphocytes % 22.7 % (10-50); Mean Corpuscular HGB Conc 32.1 g/dL (31.8-35.4); Mean Corpuscular Hemoglobin 27.4 pg (27.0-31.2); Mean Corpuscular Volume 85.3 fl (80-94); Mean Platelet Volume 24.6 fl (7.4-10.4); Monocytes # 0.8 K/mm3 (0.1-1.0); Monocytes % 8.3 % (1.7-9.3); Neutrophils # 6.2 K/mm3 (1.8-7.8); Neutrophils % 67.1 % (37.0-80.0); Platelet Count 188 K/mm3 (142-424); Red Blood Count 4.88 M/mm3 (4.60-6.20); Red Cell Distribution Width 19.6 % (11.5-17.5); White Blood Count 9.3 K/mm3 (4.8-10.8)
[2020-03-23 17:57] LABS: Alanine Aminotransferase 17 U/L (12-78); Albumin Level 4.3 g/dl (3.5-5.0); Albumin/Globulin Ratio 1.5 (1.1-1.8); Alkaline Phosphatase 141 U/L (38-126); Anion Gap 16.2 mEq/L (5-15); Aspartate Amino Transferase 26 U/L (17-59); Bilirubin,Total 0.3 mg/dl (0.2-1.3); Blood Urea Nitrogen 40 mg/dl (9-20); Calcium 10.1 mg/dl (8.4-10.2); Carbon Dioxide 29 mmol/L (22.0-30.0); Chloride 100 mmol/L (98-107); Cholesterol 171 mg/dl (140-200); Estimated Glomerular Filt Rate 65 ml/min (>60); GFR (African American) 79 ML/MIN (>60); Globulin 2.8 g/dL (1.3-3.2); Glucose 112 mg/dl (74-100); HDL Cholesterol 43 mg/dl (40-60); Potassium 4.2 mmoL/L (3.5-5.1); Sodium 141 mmol/L (136-145); Total Protein,Serum 7.1 g/dl (6.3-8.2)
[2020-03-23 18:08] LABS: Direct LDL Cholesterol 49.06 mg/dL (100-129)
[2020-03-23 18:09] LABS: Triglycerides 671 mg/dl (30-150)
[2020-03-23 18:32] LABS: Creatinine,Urine Random 79 mg/dL (Not Estab.)
[2020-03-23 18:54] LABS: Hemoglobin A1C 10.2 % (4.0-6.0)
[2020-03-23 23:46] LABS: Microalbumin/Creatinine Ratio 652.9
== END ==
PROVIDERS: Visit Provider Family Medicine
DX: E11.9 Type 2 diabetes mellitus without complications (principal); M25.552 Pain in left hip; I20.0 Unstable angina; Z79.84 Long term (current) use of oral hypoglycemic drugs
CPT/HCPCS: 80053; 80061; 82043; 82570; 83036; 85025